=== PATIENT | male | born 1975 | race Caucasian/White ===

== ENCOUNTER 2021-08-21 20:25 | Emergency (ER) | payer BC ==
[~2021-08-21] VITALS: Ht 170.2 cm; Wt 83.9 kg
--- NOTE | 2021-08-21 20:32 | NUR ---
Placed in room 01 . Placed on satellite project site monitor, blood pressure machine and pulse oximeter. To gown for exam. Side rails up.
--- NOTE | 2021-08-21 20:35 | NUR ---
Pt brought by self, A&Ox4, pt presents to ER with skin redness and itching after wating [place]uvian food today , pt took benadryl 75 mg PO, pt afebrile , skin pink and warm,cap refill <3.
[2021-08-21 20:37] VITALS: BP_SYST 137
--- NOTE | 2021-08-21 21:01 | NUR ---
Dr Florez evaluating patient at bedside
[2021-08-21] MEDS ORDERED: EPINEPHrine 1 MG/ML AMP SUBCUT ONE (21:15)
[2021-08-21] MEDS ORDERED: FAMOTIDINE 20 MG TABLET PO ONE (21:15)
[2021-08-21] MEDS ORDERED: predniSONE 20 MG TABLET PO ONE (21:15)
[2021-08-21] MEDS ORDERED: FAMO40TA71 PO (21:15)
[2021-08-21] MEDS ORDERED: PRED20TA PO (21:15)
[2021-08-21] MEDS ORDERED: DIPH25CA83 PO (21:15)
--- NOTE | 2021-08-21 21:20 | NUR ---
Pt medicated as ordered, well tolerated, respirations even and unlabored, VSS.
[2021-08-21] MEDS ORDERED: EPIN0.3P3 IM (21:31)
--- NOTE | 2021-08-21 22:00 | NUR ---
Patient given written and verbal discharge instructions and verbalizes understanding. ER MD discussed with patient the results and treatment provided. Patient in stable condition. ID arm band removed. IV catheter removed intact and dressing applied, no active bleeding. Rx of Benadryl,epipen,pepcid and prednisone given. Patient educated on pain management and to follow up with PMD. Pain Scale 0/10 . Opportunity for questions provided and answered. Medication side effect fact sheet provided.
[2021-08-21 22:01] VITALS: BP_SYST 116
== END 2021-08-21 22:01 | disposition home or self-care (01) ==
LOC: SED 20:25
DX: T78.09XA Anaphylactic reaction due to other food products, initial encounter (principal); R11.10 Vomiting, unspecified; Z79.899 Other long term (current) drug therapy
CPT/HCPCS: 96372; 99283; J0171; J7512